=== PATIENT | male | born 1995 | race Caucasian/White ===

== ENCOUNTER 2021-12-08 21:59 | Emergency (ER) | payer SELFPAY ==
[~2021-12-08] VITALS: Ht 172.7 cm; Wt 69.0 kg
[2021-12-08] MEDS ORDERED: MORPHINE SULFATE 4 MG/ML CPJ (NOT FOR IM USE) IV STA (23:01)
[2021-12-08 23:32] LABS: BASOPHILS % 0.4 % (0.0-2.0); EOSINOPHILS % 1.3 % (0.0-5.0); HEMATOCRIT. 42.7 % (42.0-52.0); HEMOGLOBIN. 14.3 g/dL (14.0-18.0); LYMPHOCYTES % 17.8 % (20.0-50.0); MEAN CORPUSCULAR HEMOGLOBIN 28.8 pg (28.0-32.0); MEAN CORPUSCULAR VOLUME 85.9 fL (80.0-94.0); MEAN PLATELET VOLUME 8.1 fl (7.4-10.4); MONOCYTES % 6.6 % (2.0-8.0); NEUTROPHILS % 73.9 % (40.0-76.0); PLATELET 222 x1000/uL (130-400); RED BLOOD CELL COUNT 4.97 mill/uL (4.7-6.1); RED CELL DISTRIBUTION WIDTH 13.1 % (11.6-14.6)
[2021-12-08 23:36] LABS: CHLORIDE 108 mEq/L (98-107)
[2021-12-08 23:37] LABS: INR 1.1; PROTHROMBIN TIME 11.6 sec (9.6-11.0)
[2021-12-09] MEDS ORDERED: IBUP-2029 MT (02:11)
[2021-12-09 03:00] VITALS: BP 110/63
== END 2021-12-09 03:33 | disposition home or self-care (01) ==
LOC: ER 21:59
DX: M54.9 Dorsalgia, unspecified (principal)
CPT/HCPCS: 36415; 72125; 72128; 72131; 80053; 85025; 85610; 86850; 86900; 86901; 96374; 99284; J2270